=== PATIENT | male | born 1940 | race Caucasian/White ===

== ENCOUNTER → 2017-07-27 07:23 | Outpatient (CLI) | payer MEDICARE, OTHER, SELFPAY | PROVIDERS: Family Provider Internal Medicine; PCP Internal Medicine; Visit Provider Urology | DX: Z53.9 Procedure and treatment not carried out, unspecified reason (principal) ==

== ENCOUNTER → 2018-04-11 11:21 | Outpatient (CLI) | payer MEDICARE, OTHER, SELFPAY ==
--- NOTE | 2018-04-11 11:38 | EKG12_ITS ---
Test Reason : PRE-OP Blood Pressure : / mmHG Vent. Rate : 058 BPM Atrial Rate : 058 BPM P-R Int : 160 ms QRS Dur : 090 ms QT Int : 412 ms P-R-T Axes : 060 -36 018 degrees QTc Int : 404 ms Sinus bradycardia Left axis deviation Abnormal ECG Confirmed by MARQUITA SAMANIEGO, ALEX ([id number]), associate entertainment editor SHONDA TIRADO ([id number]) on 04/12/2018 4:47:15 PM Referred By: Gurpreet Covarrubias Confirmed By:ALEX JUÁREZ MD
[2018-04-11 12:04] LABS: Hematocrit 43.3 % (40-54); Hemoglobin 14.7 g/dl (13.0-16.5); Mean Corp Hgb Conc 33.9 g/gl (32-36); Mean Corpuscular Volume 94.3 fL (80-94); Mean Platelet Vol. 10.6 fl (6.2-12.0); Platelet Count 233 K/mm3 (150-450); RBC Distribution Width CV 13.9 % (11.6-14.6); RBC Distribution Width SD 45.8 fl (35.1-43.9); Red Blood Count 4.59 M/mm3 (4.6-6.2); White Blood Count 7.6 K/mm3 (4.4-11.0)
[2018-04-11 12:19] LABS: Scan Indicated on CBC? Y/N NO
[2018-04-11 12:27] LABS: Anion Gap 9 (5-15); BUN 19 mg/dL (7-18); BUN/Creat Ratio 13.9 RATIO (10-20); Calcium,Total 9.3 mg/dL (8.5-10.1); Chloride 98 mmol/L (98-107); Creatinine, Serum 1.37 mg/dL (0.70-1.30); EST Glomerular Filtration Rate 53 mL/min (>60); Est Glom Filt Rate - Afr Amer 64 mL/min (>60); Glucose 330 mg/dL (74-106); Potassium 4.2 mmol/L (3.5-5.1); Sodium Level 132 mmol/L (136-145)
== END ==
PROVIDERS: Family Provider Internal Medicine; PCP Internal Medicine; Referring Provider Urology; Visit Provider Urology
DX: Z01.818 Encounter for other preprocedural examination (principal); N47.1 Phimosis
CPT/HCPCS: 36415; 80048; 85027; 93005

== ENCOUNTER → 2021-02-07 17:33 | Outpatient (CLI) | payer MEDICARE, OTHER, SELFPAY ==
--- NOTE | 2021-02-07 | CYST_PTH ---
PATIENT: JUVENAL BRUNER LOC: [facility] U#:[id number] AGE/SX: 84/M ROOM: RE02/07/[address]: Dr. Jed Phillip MD : 1940 BED: DIS: SPEC #: [id number] RECD: 02/07/21 17:33 STATUS: DES GLYNN #: [id number] JASWINDER: 02/07/21 00:[address]: Jed Phillip DEPT: SURGICAL PATHOLOGY RECD BY: Ramón Lewis ENTERED: 02/10/21 09:03 SP TYPE: Cyst OTHR DR: Dr. Niki Rodrigues MD Tissues: CYST Procedures: Surgery Specimen Level III HEADER OPERATION: Removal of inclusion cyst of right lower lid PRE-OP DIAGNOSIS: Inclusion cyst with vascularity TISSUE SUBMITTED: Right lower lid MICROSCOPIC DIAGNOSIS Lesion of right lower eyelid, biopsy: Benign epithelial cyst. AM:wood 02/11/2021 MICROSCOPIC DESCRIPTION Slides are reviewed. GROSS DESCRIPTION Received in fixative is one container labeled with the patient's name and designated cyst of right lower lid. The specimen consists of a piece of vivas-white skin measuring 0.3 x 0.3 x 0.2 cm. The specimen is totally submitted in one cassette. / FABIANO:wood 02/10/21 TC:5 CPT: 73534
== END ==
PROVIDERS: PCP Internal Medicine; Visit Provider Ophthalmology
DX: L72.0 Epidermal cyst (principal)
CPT/HCPCS: 88304